=== PATIENT | male | born 1980 | race American Indian/Alaskan Native ===

== ENCOUNTER 2018-10-28 15:11 | Emergency (ER) | payer OTHER ==
[2018-10-28 15:19] VITALS: BP 128/87
[2018-10-28] MEDS ORDERED: NACL 0.9% 1000 ML 1,000 ML IV ONE (16:12)
[2018-10-28] MEDS ORDERED: ZOFRAN IV ONE (16:13)
[2018-10-28 16:28] LABS: Basophils % (Auto) 0.6 % (0.0-1.8); Eosinophils # (Auto) 0.2 K/mm3 (0.0-0.4); Eosinophils % (Auto) 6.1 % (0.0-4.3); Hematocrit 45.2 % (35.5-45.6); Hemoglobin 15.2 gm/dl (11.8-15.2); Lymphocytes % (Auto) 38.8 % (13.4-35.0); Mean Corpuscular HGB Conc 34 % (32-34); Mean Corpuscular Volume 83 fl (84-94); Monocytes # (Auto) 0.3 K/mm3 (0.0-0.8); Monocytes % (Auto) 9.7 % (0.0-7.3); Platelet Count 160 K/mm3 (140-440); Red Blood Count 5.48 M/mm3 (3.65-5.03); Red Cell Distribution Width 14.3 % (13.2-15.2)
[2018-10-28 16:47] LABS: BUN/Creatinine Ratio 8; Blood Urea Nitrogen 10 mg/dL (9-20); Calcium 9.2 mg/dL (8.4-10.2); Hemolysis Index 3
--- NOTE | 2018-10-28 17:23 | Emergency Department Report ---
ED General Adult HPI - General Chief complaint: Weakness Stated complaint: CRAMPING/SHAKY HANDS/PULSE RACING Time Seen by Provider: 10/28/18 15:45 Source: patient Mode of arrival: Ambulatory Limitations: No Limitations - History of Present Illness Initial comments: This is a 38-year-old male with no prior medical history other than heatstroke who presents to ED complaining of heat exhaustion prior to coming to the ED. 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 Patient states he's had a history of heat stroke some years ago and does not go out in the sun due to this. Patient states he was out there for about an hour in the hot sun. Patient states he has a past medical history of acid reflux which she takes some [id number] medications for otherwise no other complaints. He denies fevers/chills/nausea vomiting/syncope or dizziness chest pain no shortness of breath, muscle aches or pain, difficulty walking. - Related Data Allergies Allergy/AdvReac Type Severity Reaction Status Date / Time No Known Allergies Allergy Unverified 10/28/18 15:16 ED Review of Systems ROS: Stated complaint: CRAMPING/SHAKY HANDS/PULSE RACING Other details as noted in HPI Comment: All other systems reviewed and negative ED Past Medical Hx - Past Medical History Previous Medical History?: No - Surgical History Past Surgical History?: No - Social History Smoking Status: Former Smoker Substance Use Type: None ED Physical Exam - General Limitations: No Limitations General appearance: alert, in no apparent distress - Head Head exam: Present: atraumatic, normocephalic - Eye Eye exam: Present: normal appearance - ENT ENT exam: Present: mucous membranes moist - Neck Neck exam: Present: normal inspection - Respiratory Respiratory exam: Present: normal lung sounds bilaterally. Absent: respiratory distress - Cardiovascular Cardiovascular Exam: Present: regular rate, normal rhythm. Absent: systolic murmur, diastolic murmur, rubs, gallop - GI/Abdominal GI/Abdominal exam: Present: soft, normal bowel sounds - Rectal Rectal exam: Present: deferred - Extremities Exam Extremities exam: Present: normal inspection - Back Exam Back exam: Present: normal inspection - Neurological Exam Neurological exam: Present: alert, oriented X3 - Psychiatric Psychiatric exam: Present: normal affect, normal mood - Skin Skin exam: Present: warm, dry, intact, normal color. Absent: rash ED Course Vital Signs 10/28/18 15:17 Temperature 97.8 F Pulse Rate 64 Respiratory 16 Rate Blood Pressure 128/87 [Left] O2 Sat by Pulse 100 Oximetry - Reevaluation(s) Reevaluation #1: 10/28/18 17:32 Patient reports feeling much better after fluids and Zofran. He is in no acute distress. He is in the ED well comfortably ED Medical Decision Making - Lab Data Result diagrams: 10/28/18 16:19 10/28/18 16:19 - Medical Decision Making 38-year-old male presents with heat exhaustion prior to arrival to the ED. CBC, CMP within normal limits. This patient was given 1 L of fluids and Zofran to help heaving and nausea. Vital signs are normal patient is in no acute distress. Patient reports feeling much better. Critical care attestation.: If time is entered above; I have spent that time in minutes in the direct care of this critically ill patient, excluding procedure time. ED Disposition Clinical Impression: Heat exhaustion Disposition: [id number] TO HOME OR SELFCARE Is pt being admited?: No Does the pt Need Aspirin: No Condition: Stable Instructions: Heat Exhaustion (ED), Heatstroke (ED) Additional Instructions: Make sure to follow up with the primary care physician as discussed. Avoid being hit full appears that time. They sure you're hydrated with plenty of water throughout the day If you have any worsening symptoms or develop new symptoms please return to ED immediately. Referrals: ELLE GUTIERRES RN [Primary Care Provider] - 3-5 Days Forms: Work/School Release Form(ED)
== END 2018-10-28 17:55 | disposition home or self-care (01) ==
LOC: ED 15:11
DX: T67.5XXA Heat exhaustion, unspecified, initial encounter (principal); Z87.891 Personal history of nicotine dependence; X32.XXXA Exposure to sunlight, initial encounter; Y93.89 Activity, other specified; Y92.89 Other specified places as the place of occurrence of the external cause; Y99.8 Other external cause status
CPT/HCPCS: 36415; 80048; 85025; 96374; 99283; J2405; J7030